=== PATIENT | female | born 1950 | race Caucasian/White ===

== ENCOUNTER 2016-09-04 20:26 | Inpatient (IN) | payer OTHER, MEDICARE ==
--- NOTE | ~2016-09-04 | HP ---
History And Physical [place] [id number] [place]. [address] NAME: TOPHER WASHINGTON : [birth year] STATUS : ADM IN [facility]#: [id number] AGE: 66 ADM/REG DATE : 09/04/16 MR#: [id number] REPORT SERV DATE: 09/05/16 DICTATED BY: NALINI SAINI DATE: 09/04/16 REPORT STATUS : Draft TRANSCRIBED BY: MODL DATE: 09/04/16 DATE OF ADMISSION: 09/04/2016 REASON FOR ADMISSION: Melena. Primary care doctor unclear. Sees Dr. Coyle needs and apparently Dr. Ernesto García for PCP. HISTORY OF PRESENT ILLNESS: This is a 66-year-old unfortunate female. 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 Noted colectomy due to history of colon cancer. The patient was recently discharged on 07/25/2016. At that time, the patient came in to the ICU for hypotension, epistaxis. Was given 2 PRBCs at that time. Noted to have recent discharge from [place] prior to that admission for GI bleed due to AVMs with small bowel obstruction. The patient was discharged. Did fairly well. Did have a routine paracenteses, 1.75 L were taken out. Seen Dr. Coyle, who last did another endoscopy on 08/18/2016. At that time, had found erythematous mucosa in the cardia of the stomach, multiple nonbleeding angiodysplastic lesions in the stomach. This was treated with thermal therapy, hiatal hernia and erythematous duodenopathy. Unfortunately, the patient has been getting almost every four toe eight weeks blood transfusion, last time got a couple of units of blood less than six weeks ago and as a matter of fact, her hemoglobin was 9 at that time. Now, she comes in here. Anemia 6.2 from 9 baseline about three weeks ago. States she has significant melanotic diarrhea. However, she should be taking her lactulose. Has denied taking any NSAIDs. The patient is hoping to get on to a plane on Thursday to fly to [facility] to get on the liver transplant list. Previously, she was denied at [place]. Apparently, Dr. Coyle instructed her today to come in and get 3 units of blood, get tuned up for hopeful ability to get on, make her flight down to [facility] presumably in [place]. Positive chills. No fevers. Positive nausea. No vomiting. Positive diarrhea as described. No chest pain, no chest pressure. Mild shortness of breath. REVIEW OF SYSTEMS: Done, see HPI, otherwise, negative. PAST MEDICAL HISTORY: See above. PAST SURGICAL HISTORY: See above. ALLERGIES: APPARENTLY DILAUDID, ADHESIVE TAPE, AND SULFA. FAMILY HISTORY: Hypertension in at least one parent. History And Physical [address] [address] NAME: TOPHER WASHINGTON : [birth year] STATUS : ADM IN [facility]#: [id number] AGE: 66 ADM/REG DATE : 09/04/16 MR#: [id number] REPORT SERV DATE: 09/05/16 DICTATED BY: NALINI SAINI DATE: 09/04/16 REPORT STATUS : Draft TRANSCRIBED BY: LILY DATE: 09/04/16 SOCIAL HISTORY: Lives independently with . Very supportive family. Denies alcohol, tobacco, or drug use. HOME MEDICATIONS: See MAR. Continue what is relevant. OBJECTIVE: VITAL SIGNS: Currently, 104/58; 97 temperature; 24 pulse, this is not true, this pulse is actually per EKG 91; 100% on 2 L. GENERAL: No acute distress. HEENT: PERRLA. CARDIOVASCULAR: Regular rate and rhythm. No murmur. RESPIRATORY: Decreased breath sounds bibasilarly. ABDOMEN: She is less distended apparently than prior. Some mild tenderness to palpation more in the right upper quadrant. No peritoneal signs or rebound tenderness. EXTREMITIES: No edema. No ecchymosis. NEURO: A and O x4. GCS of 15. No asterixis. PSYCH: Mildly anxious. LABORATORY DATA: White count 7.8; hemoglobin 6.2, apparently was 9 three weeks ago; [id number] platelets, 1.4 INR, 4.1 potassium, 130 sodium, 24 bicarb, 2.02 creatinine, baseline is about 1.8, 55 BUN, 219 sugar, T bilirubin 2.1, ALP 238. EKG, she has a normal sinus rhythm, no ischemic ST-T changes. I will get a chest x-ray given her subjective shortness of breath. It is more likely symptomatic anemia. ASSESSMENT AND PLAN: 1. Symptomatic anemia, significant fatigue, and shortness of breath. 2. Melena. 3. Nonalcoholic steatohepatitis cirrhosis. Follow up INR to calculate MELD. 4. Chronic kidney disease. Seems to be at baseline. PLAN: We will go ahead and admit this patient. We will ask Dr. Coyle to come by. I did not see any esophageal varices in the last endoscopy. As a result, I will not give any octreotide, rather we will just do PPI and IV b.i.d. Given her angioectasias, may be difficult to treat. She may have them throughout her GI tract. Given her history of cirrhosis, we will put on empiric IV Rocephin. Give iron dextran after PRBC 3 unit infusion as requested apparently from the patient per Dr. Coyle. The patient also with CT abdomen and pelvis regarding this melena. See rest of my orders. All questions were answered. Took well over 60 minutes to do. Reference [employer] and [employer]. WST/MODL Nalini Saini DO History And Physical [address] [address] NAME: TOPHER WASHINGTON : [birth year] STATUS : ADM IN PAT#: [id number] AGE: 66 ADM/REG DATE : 09/04/16 MR#: [id number] REPORT SERV DATE: 09/05/16 DICTATED BY: NALINI SAINI DATE: 09/04/16 REPORT STATUS : Draft TRANSCRIBED BY: MODL DATE: 09/04/16 / [id number] CC: Betsy Chambers M.D.
--- NOTE | ~2016-09-04 | DS ---
Discharge Summary [facility] [address] [place]. [address] NAME: TOPHER WASHINGTON : [birth year] STATUS : ADM IN [facility]#: [id number] AGE: 66 ADM/REG DATE : 09/04/16 MR#: [id number] REPORT SERV DATE: 09/05/16 DICTATED BY: APARNA EAST DATE: 09/05/16 REPORT STATUS : Draft TRANSCRIBED BY: MODL DATE: 09/05/16 ADMISSION DATE: 09/04/2016 DISCHARGE DATE: 09/05/2016 FINAL HOSPITAL DIAGNOSES: 1. Nonalcoholic steatohepatitis. 2. Arteriovenous malformations. 3. Chronic kidney disease. CONSULTATION: GI. PROCEDURES: Upper endoscopy done on the showing gastric antral vascular ectasia without bleeding, treated by fulguration. CT scan of the abdomen and pelvis done on the showing a fluid collection in the left abdomen, may represent loculated ascites. Abscess is not excluded. Small bowel loops around the collection appeared hazed and some of the florian have thickened. No oral contrast was given. Ileus gas pattern with air-fluid levels and multiple loops of nondilated small bowel and colon. Persistent right pleural effusion, right basilar consolidation, third spacing of fluid. Current physical findings and HPI, please see initial dictated H and P by Dr. Wagner. In brief, the patient is a 66-year-old female with above medical history, has an appointment Thursday with [facility] for consideration of transplantation with end-stage liver disease, presented for evaluation and treatment of upper GI bleeding and preparation for her assessments at [facility]. HOSPITAL COURSE: Initial vital signs, presenting BP was 85/47, average blood pressures have been 90-100 systolic. She has had no fever during her hospital stay. Lab work showed initially a sodium of 130, which corrected to 133. BUN and creatinine were 62 and 1.89 on date of discharge, which is approximately her baseline. Procalcitonin was 0.37, total bilirubin was 2.1, BNP was 1246, A1c was 4.5, ammonia was 72. The patient had a white count of 7.7 on admission and 9.2 on the date of discharge. Initial hemoglobin was 6.2, 7.2 on date of discharge, platelet count 147. INR 1.4. The patient was admitted. She was started on electrolyte protocol. Her home medications were reviewed and reordered as appropriate. GI was consulted for recurrent upper endoscopy. Above lab work was ordered. Serial hemoglobins were ordered. The patient was typed and crossed for blood transfusion. She was started on Rocephin and Protonix. She was consented for an EGD, which she underwent with the above findings. Postprocedure, she was felt stable for discharge. She did receive in total 2 units of packed cells. I did review the CT findings with the patient, her , and Dr. Sam. On review of her previous CTs, it appears this area of fluid collection was present before in light of her lack of white count, fever, or procalcitonin. This does appear clinically to be more likely ascitic fluid than representing an abscess. The patient understand the risks and benefits of this diagnosis, including significant infection; however, she felt it was imperative to get to Discharge Summary [address] [address] NAME: TOPHER WASHINGTON : [birth year] STATUS : ADM IN [facility]#: [id number] AGE: 66 ADM/REG DATE : 09/04/16 MR#: [id number] REPORT SERV DATE: 09/05/16 DICTATED BY: APARNA EAST DATE: 09/05/16 REPORT STATUS : Draft TRANSCRIBED BY: MODShoshana DATE: 09/05/16 [facility] for her transplant evaluation. Her was in agreement and the patient was discharged in stable condition. DISPOSITION: Discharged on Cipro 250 q.3 days, coenzyme Q10 75 one per day, lactulose 15-30 b.i.d., Prilosec 40 b.i.d., Xifaxan 550 b.i.d., Aldactone 50 one per day, ProAmatine 5 t.i.d., Lasix 60 daily, Levsin 0.125 three times a day, Ultram 50, Culturelle, magnesium oxide 400, Zofran 4. The patient and her were given signs and symptoms of infection including fever, encephalopathy, hypotension to seek medical care immediately. The patient will return after evaluation in [facility]. BRANDIN/LILY Aparna East M.D. / [id number] CC: Betsy Chambers M.D.
--- NOTE | ~2016-09-04 | EGD ---
EGD REPORT [facility] [address] [address] NAME: TOPHER WASHINGTON : [birth year] STATUS : ADM IN PAT#: [id number] AGE: 66 ADM/REG DATE : 09/04/16 MR#: [id number] REPORT SERV DATE: 09/05/16 DICTATED BY: JOVON ESPAÑA DATE: 09/05/16 REPORT STATUS : Draft TRANSCRIBED BY: [facility] DATE: 09/05/16 Endoscopy Center Patient Name: Topher Washington Date of : 1950 Attending MD: JOVON ESPAÑA MD Procedure Date No Time: 09/05/2016 Procedure: Upper GI endoscopy Indications: Iron deficiency anemia secondary to chronic blood loss Medicines: Monitored Anesthesia Care Complications: No immediate complications. Estimated blood loss: Minimal. Procedure: Pre-Anesthesia Assessment: - ASA Grade Assessment: IV - A patient with severe systemic disease that is a constant threat to life. After obtaining informed consent, the endoscope was passed under direct vision. Throughout the procedure, the patient's blood pressure, pulse, and oxygen saturations were monitored continuously. The GIF [id number] was introduced through the mouth, and advanced to the second part of duodenum. The upper GI endoscopy was accomplished without difficulty. The patient tolerated the procedure well. Findings: No gross lesions were noted in the entire esophagus. Moderate, diffuse gastric antral vascular ectasia without bleeding was present in the gastric antrum. Fulguration to ablate the lesion to prevent bleeding by argon plasma at 1 liter/minute and 30 castrejon was successful. Estimated blood loss was minimal. The examined duodenum was normal. Impression: - Gastric antral vascular ectasia without bleeding. Treated by fulguration. - Otherwise unremarkable examination Recommendation: - Return patient to hospital [facility] for possible discharge same day. - Protonix 40 mg PO BID for 6 weeks - Advance diet slowly - OK to D/C for trip to [facility] from GI standpoint Procedure Code(s): --- Professional --- 14460, Esophagogastroduodenoscopy, flexible, transoral; with control of bleeding, any method EGD REPORT [facility] [address] [place], [place] [address]. [address] NAME: TOPHER WASHINGTON : [birth year] STATUS : ADM IN [facility]#: [id number] AGE: 66 ADM/REG DATE : 09/04/16 MR#: [id number] REPORT SERV DATE: 09/05/16 DICTATED BY: JOVON ESPAÑA DATE: 09/05/16 REPORT STATUS : Draft TRANSCRIBED BY: [employer] DATE: 09/05/16 Diagnosis Code(s): --- Professional --- K31.819, Angiodysplasia of stomach and duodenum without bleeding D50.0, Iron deficiency anemia secondary to blood loss (chronic) CPT copyright 2013 [employer]. All rights reserved. The codes documented in this report are preliminary and upon research administrator review may be revised to meet current compliance requirements. Jovon España MD JOVON ESPAÑA MD 09/05/2016 6:56 PM This report has been signed electronically. Number of Addenda: 0 Note Initiated On: 09/05/2016 6:29 PM Scope Withdrawal Time 0 hours 0 minutes 0 seconds [address] [facility] [place] [address]
--- NOTE | ~2016-09-04 | CN ---
Consultation Report [facility] [address] [place]. [address] NAME: TOPHER PEARSON : [birth year] STATUS : ADM IN PAT#: [id number] AGE: 66 ADM/REG DATE : 09/04/16 MR#: [id number] REPORT SERV DATE: 09/05/16 DICTATED BY: ESTEFANIA OROZCO DATE: 09/05/16 REPORT STATUS : Draft TRANSCRIBED BY: LILY DATE: 09/05/16 GI CONSULTATION. DATE OF CONSULTATION: 09/05/2016 REASON FOR CONSULTATION: Evaluation and management of acute blood loss anemia with a history of chronic anemia, melena, history of AVMs, as well as decompensated liver disease. HISTORY OF PRESENT ILLNESS: Ms. Pearson is a pleasant 66-year-old female patient who is known to Dr. Coyle in the outpatient setting, who presented to [facility] with a chief complaint of symptomatic anemia. Hemoglobin was 6.2 on admission. She complains of continuous dark stools. She has a pertinent past medical history of MELARA cirrhosis. She has been evaluated at [facility] for liver transplantation and was declined. She has also been seen at [facility] and is presently traveling to the [facility] in [place] for evaluation for liver transplantation. She has had recent endoscopy with Dr. Coyle on 08/18/2016, this was done secondary to persistent anemia as well as known AVMs. That exam showed normal esophagus, some erythema in the cardia. She had multiple nonbleeding angiodysplastic lesions in the stomach that were treated with thermal therapy. She had duodenitis and a hiatal hernia. She states that she received blood roughly a week ago, however, she complained of weakness. Labs with Dr. Coyle in the outpatient setting revealed a hemoglobin of 6.5, and as she was making plans to travel tomorrow to [place], he instructed her to come to the hospital for further evaluation secondary to above symptoms. At present, she has received one unit of packed red blood cells. She is slated to receive three. She denies any abdominal pain. She states that she is thirsty and would like a popsicle. I have discussed with her that we will place her on clear liquid diet today, perform an EGD in the morning, and potentially discharge her later that day or Thursday when she can travel to [place] for her appointment on Thursday. She denies any bright red blood per rectum. She denies any vomiting. She has some mild nausea. She has some mild exertional shortness of breath. She does have multiple black tarry stools a day. She is on lactulose secondary to her liver disease. She has had no documented fevers. No cough. No rhinorrhea. PAST MEDICAL HISTORY: Positive for end-stage liver disease secondary to MELARA versus GERD with hiatal hernia, gastric antral vascular ectasias having to undergo treatment every several weeks with cautery by Dr. Coyle, breast cancer, colon cancer, neuropathy, MRSA infection, chronic kidney disease, urinary tract infections, ascites, small-bowel obstructions. PAST SURGICAL HISTORY: Cholecystectomy, hysterectomy, partial colectomy secondary to colon cancer. FAMILY HISTORY: Noncontributory from a GI standpoint. SOCIAL HISTORY: She lives independently with her . Very supportive family at the Consultation Report [address] [address] NAME: TOPHER PEARSON : [birth year] STATUS : ADM IN [facility]#: [id number] AGE: 66 ADM/REG DATE : 09/04/16 MR#: [id number] REPORT SERV DATE: 09/05/16 DICTATED BY: ESTEFANIA OROZCO DATE: 09/05/16 REPORT STATUS : Draft TRANSCRIBED BY: LILY DATE: 09/05/16 bedside. Denies alcohol, tobacco, or illicits. ALLERGIES: DILAUDID AND SULFA, AND ADHESIVE TAPE. HOME MEDICATIONS: Cipro, CoQ10, Lasix, Levsin, Enulose, magnesium oxide, ProAmatine, Prilosec, Zofran, Xifaxan, Aldactone, Ultram, Culturelle capsule. REVIEW OF SYSTEMS: A 10-point review of systems obtained, pertinent positives addressed in the history of present illness. PHYSICAL EXAMINATION: VITAL SIGNS: Temperature 97.9, pulse 88, respirations 20, blood pressure 85/46. NEURO: Reveals an alert, chronically ill-appearing female, resting in bed. GENERAL: She is cooperative. She is in no obvious distress. She is awake. She is alert. She is oriented x3. She has no asterixis noted. Positive for neck and chest telangiectasias. HEAD, EARS, EYES, NOSE, AND THROAT: Anicteric. Pupils equal, round, reactive to light and accommodation. Normocephalic and atraumatic. NECK: No JVD. No palpable nodes. LUNGS: Diminished throughout. Normal respiratory effort exhibited. CARDIOVASCULAR SYSTEM: Regular rate and rhythm. ABDOMEN: Soft, nontender. Very mild distention. No appreciable ascites. She has active bowel sounds in all four quadrants. No organomegaly appreciated. EXTREMITIES: No edema. Normal distal pulses. SKIN: Warm, dry, and intact. PERTINENT LABORATORY DATA: Sodium 130, potassium 4.1, BUN is 55, creatinine 2.02. White count 7.7, hemoglobin 6.2, hematocrit 18.6, platelet count 188. INR of 1.4. BNP is 1246. TSH is 1.850. ASSESSMENT: 1. Acute blood loss anemia with a history of chronic ongoing anemia. 2. Melena with history of AVMs and recent intervention with Dr. Coyle on 18/08. 3. End-stage liver disease secondary to nonalcoholic steatohepatitis. 4. History of recurrent small-bowel obstructions, asymptomatic at this time. 5. Chronic kidney disease. PLAN: 1. Clear liquid diet. N.p.o. after midnight. 2. Transfuse by parameters given by hospitalist. 3. EGD with treatment of AVMs in the morning with Dr. De Leon. 4. Follow hemoglobin and hematocrit and transfuse if needed. We will follow. Consultation Report [address] [place]. [address] NAME: TOPHER PEARSON : [birth year] STATUS : ADM IN [facility]#: [id number] AGE: 66 ADM/REG DATE : 09/04/16 MR#: [id number] REPORT SERV DATE: 09/05/16 DICTATED BY: ESTEFANIA OROZCO DATE: 09/05/16 REPORT STATUS : Draft TRANSCRIBED BY: MODShoshana DATE: 09/05/16 CECILY/LILY SEAN Larkin / [id number] CC: Betsy Chambers M.D.
[2016-09-04 19:16] LABS: BASOPHILS 0.1 %; BASOPHILS ABSOLUTE 0.01 10/3/uL (0.0-0.16); EOSINOPHILS 0 %; IMMATURE GRANULOCYTES 1.6 %; IMMATURE GRANULOCYTES ABSOLUTE 0.12 10/3/uL (0.0-0.11); LYMPHOCYTES 5.8 %; LYMPHOCYTES ABSOLUTE 0.44 10/3/uL (0.67-4.30); MEAN CORPUS HGB CONC 33.3 g/dL (32.0-36.0); MEAN CORPUSCULAR HEMOGLOB 32.3 pg (26.0-34.0); MEAN PLATELET VOLUME 9.4 fL (9.2-13.0); MONOCYTES 1.7 %; MONOCYTES ABSOLUTE 0.13 10/3/uL (0.21-1.20); NEUTROPHILS 90.8 %; NEUTROPHILS ABSOLUTE 6.95 10/3/uL (2.02-8.40); RED CELL COUNT 1.92 10/6/uL (4.0-5.6); WHITE BLOOD CELLS 7.7 10/3/uL (4.5-10.5)
[2016-09-04 19:21] LABS: HEMATOCRIT 18.6 % (36.0-48.0); HEMOGLOBIN 6.2 g/dL (12.0-16.0); MEAN CORPUSCULAR VOLUME 96.9 fL (80-100); PLATELET COUNT 188 10/3/uL (150-400); RBC DISTRIBUTION WIDTH 22.1 % (12.0-16.0)
[2016-09-04 19:22] LABS: MANUAL DIFF NO %
[2016-09-04 19:31] LABS: A/G RATIO 0.4 (0.7-1.9); ALKALINE PHOSPHATASE 238 U/L (45-117); BUN (BLOOD UREA NITROGEN) 55 MG/DL (6-23); CALCIUM, SERUM 8.2 MG/DL (8.5-10.4); CHLORIDE, SERUM 92 MMOL/L (96-112); CO2 (CARBON DIOXIDE) 24 MMOL/L (24-34); CREATININE 2.02 MG/DL (0.55-1.02); GFR AFRICAN AMERICAN 29 ML/MIN (>=60); GFR NON AFRICAN AMERICAN 25 ML/MIN (>=60); GLOBULIN 4.9 G/DL (2.5-4.1); GLUCOSE, SERUM 219 MG/DL (60-99); POTASSIUM, SERUM 4.1 MMOL/L (3.5-5.3); SODIUM, SERUM 130 MMOL/L (135-148); TOTAL BILIRUBIN 2.1 MG/DL (0-1.2); TOTAL PROTEIN 6.9 G/DL (6.0-8.5)
[2016-09-04 19:32] LABS: INTERNATIONAL NORMAL RATI 1.4 UNITS (-); PARTIAL THROMBO TIME 34.8 SEC (22.5-37.2); PROTIME (NOT ORD) 16.9 SEC (12.0-14.5); SGOT(AST) 33 U/L (5-40); SGPT(ALT) 25 U/L (5-65)
[2016-09-04 19:43] LABS: ANISOCYTOSIS 1+ (5-10/OIF) (0-5/OIF); PLATELET ESTIMATE ADQ (ADEQUATE)
[~2016-09-04 20:26] MED LIST: ACET500CAP PO; ACTONEL150 MG PO; AMOXIL875 MG PO; ATV.5 PO; BEN25 PO; BENTYL10 PO; BISR PR; CO Q-10100 MG PO; CO Q-10200 MG PO; CO Q-1075 MG PO; CONSTULOSE PO; COREG3 PO; COZ50 PO; CULTURELLE OTC PO; CULTURELLE PO; CULTURELLE PROBIOTIC PO; DEMA20 PO; DSS PO; ENDOCET1 TA3 PO; ENULOSE PO; FERROUS SULF325 M1 PO; FESO4 PO; FLORASTOR250 MG PO; FOLIC PO; FORTEO SC; GGDM5ML PO; I10 PO; KAOPECTATE262 MG/15 PO; KLOR-CON M2020 MEQ PO; KRISTALOSE10 GM PO; L20 PO; L40 PO; LACT30UDL PO; LASIX PO; LEVAQUIN750 MG PO; LEVSINTAB PO; LEVSINTAB PO/SL; LEVSINTAB SL; MAALOX PO; MAGIC MOUTHWASH PO; MAGOX4 PO; MOMUD PO; MVI PO; NYSTOP100000 MG TOP; OCEAN NAS; OXYCOD PO; OXYIR5 MG PO; PCET PO; PR25R PR; PREV15 PO; PRILO PO; PRILOSEC40 MG PO; PROAIR HFA INH; PROTONIX PO; QVAR80 MCG INH; RANITIDINE300 MG PO; RECLAST IV; SOAP SUDS ENEMA PR; SODBICAR10 PO; SPIRO25 PO; SPIRO50 PO; T PO; TAMOXIFEN IV; TAMOXIFEN PO; TYLOX1 CAP PO; ULTRAM50 PO; VENELEX OINTMENT TOP; VICODINTAB PO; VITAMIN B; VITAMIN B PO; XIFAXAN550 MG PO; ZOFRAN ODT4 MG SL; ZOFRAN4 PO; [UNRECOGNIZED DRUG - OTHER] IM; [UNRECOGNIZED DRUG - OTHER] PO
[2016-09-04] MEDS ORDERED: L20 PO (20:32)
[2016-09-04] MEDS ORDERED: CO Q-1075 MG PO (20:32)
[2016-09-04] MEDS ORDERED: XIFAXAN550 MG PO (20:34)
[2016-09-04] MEDS ORDERED: LEVSINTAB SL (20:34)
[2016-09-04] MEDS ORDERED: ULTRAM50 PO (20:34)
[2016-09-04] MEDS ORDERED: PRILOSEC40 MG PO (20:34)
[2016-09-04] MEDS ORDERED: ENULOSE PO (20:35)
[2016-09-04] MEDS ORDERED: CULTURELLE CAPSULE PO (20:35)
[2016-09-04] MEDS ORDERED: MAGOX4 PO (20:35)
[2016-09-04] MEDS ORDERED: SPIRO50 PO (20:36)
[2016-09-04] MEDS ORDERED: PROAMAT5 PO (20:36)
[2016-09-04] MEDS ORDERED: CIP2 PO (20:36)
[2016-09-04] MEDS ORDERED: ZOFRAN4 PO (20:36)
[2016-09-05 01:04] LABS: PROCALCITONIN 0.37 ng/mL (<0.5)
[2016-09-05 01:24] LABS: PHOSPHORUS, SERUM 3.2 MG/DL (2.5-4.5)
[2016-09-05 08:14] LABS: GLYCOHEMOGLOBIN (HbA1c) 4.5 % (4.7-6.1)
[2016-09-05 09:48] LABS: HEMOGLOBIN 7.2 g/dL (12.0-16.0); MEAN CORPUS HGB CONC 32.6 g/dL (32.0-36.0); MEAN CORPUSCULAR VOLUME 98.2 fL (80-100); MEAN PLATELET VOLUME 9.7 fL (9.2-13.0); PLATELET COUNT 147 10/3/uL (150-400); RBC DISTRIBUTION WIDTH 20.3 % (12.0-16.0); RED CELL COUNT 2.25 10/6/uL (4.0-5.6); WHITE BLOOD CELLS 9.2 10/3/uL (4.5-10.5)
[2016-09-05 09:59] LABS: HEMATOCRIT 22.1 % (36.0-48.0); MANUAL DIFF YES %
[2016-09-05 10:01] LABS: CALCIUM, SERUM 8.2 MG/DL (8.5-10.4); CHLORIDE, SERUM 98 MMOL/L (96-112); CO2 (CARBON DIOXIDE) 25 MMOL/L (24-34); CREATININE 1.89 MG/DL (0.55-1.02); GFR AFRICAN AMERICAN 31 ML/MIN (>=60); GFR NON AFRICAN AMERICAN 27 ML/MIN (>=60); PHOSPHORUS, SERUM 3.1 MG/DL (2.5-4.5); POTASSIUM, SERUM 4.8 MMOL/L (3.5-5.3); SODIUM, SERUM 133 MMOL/L (135-148)
[2016-09-05 10:02] LABS: BUN (BLOOD UREA NITROGEN) 62 MG/DL (6-23); GLUCOSE, SERUM 135 MG/DL (60-99)
[2016-09-05 10:26] LABS: BAND NEUTROPHILS 5 %; LYMPHOCYTES 10 %; LYMPHOCYTES ABSOLUTE (CALC) 0.92 10/3/uL (0.67-4.30); MONOCYTES 3 %; MONOCYTES ABSOLUTE (CALC) 0.28 10/3/uL (0.21-1.20); SEGMENTED NEUTROPHIL (0) 82 %; TOTAL NUCLEATED CELLS 100
[2016-09-05 10:27] LABS: ANISOCYTOSIS 1+ (5-10/OIF) (0-5/OIF); PLATELET ESTIMATE SLT DEC (ADEQUATE); POLYCHROMASIA 1+ (2-5/OIF) (0-1/OIF)
== END 2016-09-05 22:12 | disposition home or self-care (01) | DRG 392 ==
LOC: ER 20:26 → 4SO 21:01
PROVIDERS: Emergency Medicine; Internal Medicine; Internal Medicine Gastroenterology
PROC: 30233N1 Transfusion of Nonautologous Red Blood Cells into Peripheral Vein, Percutaneous Approach (ICD-10-PCS; 2016-09-05)
PROC: 0D568ZZ Destruction of Stomach, Via Natural or Artificial Opening Endoscopic (ICD-10-PCS; principal; 2016-09-05 18:30)
DX: K31.819 Angiodysplasia of stomach and duodenum without bleeding (principal); R18.8 Other ascites; K74.69 Other cirrhosis of liver; D62 Acute posthemorrhagic anemia; N18.3 Chronic kidney disease, stage 3 (moderate); D50.0 Iron deficiency anemia secondary to blood loss (chronic); K75.81 Nonalcoholic steatohepatitis (NASH); G62.9 Polyneuropathy, unspecified; K21.9 Gastro-esophageal reflux disease without esophagitis; Z88.8 Allergy status to other drugs, medicaments and biological substances; Z88.2 Allergy status to sulfonamides; Z91.048 Other nonmedicinal substance allergy status; Z85.038 Personal history of other malignant neoplasm of large intestine; Z90.49 Acquired absence of other specified parts of digestive tract
CPT/HCPCS: 36415; 71010; 74176; 80048; 80053; 82140; 82962; 83036; 83735; 83880; 84100; 84145; 84443; 85025; 85610; 85730; 86850; 86870; 86900; 86901; 86920; 86922; 93005; 99291; A9270-GY; C9113; J1750; P9016; P9054

== ENCOUNTER 2016-10-03 22:47 | Inpatient (IN) | payer MEDICARE ==
--- NOTE | ~2016-10-03 | HP ---
History And Physical [facility] [address] [facility] [place]. [address] NAME: TOPHER PEARSON : 46 STATUS : ADM Lissette PAT#: [id number] AGE: 66 ADM/REG DATE : 10/03/16 MR#: [id number] REPORT SERV DATE: 10/04/16 DICTATED BY: ERIC CARPENTER DATE: 10/04/16 REPORT STATUS : Draft TRANSCRIBED BY: MODL DATE: 10/04/16 DATE OF ADMISSION: 10/03/2016 CHIEF COMPLAINT: Altered mental status and confusion. HISTORY OF PRESENT ILLNESS: This is a 66-year-old female, who I had seen in the past about a year or so ago with a history of nonalcoholic steatohepatitis with cirrhosis of the liver, chronic kidney disease, chronic anemia, who presents to the emergency room at [facility] with the above-mentioned complaint. History is obtained from the family who is at bedside, and reviewing data available on the [employer] system. According to available data, Mrs. Pearson had just returned from [facility] in [place] after she was evaluated for liver transplantation. Unfortunately, she had cardiac complications and would not be able to tolerate surgery so she was denied her liver transplantation. The patient's family, along with her returned home to [place] today with the expectation of her being placed under hospice care. They met with hospice care upon return today and as part of the discussions, blood transfusions had come up and hospice care said that they would not do blood transfusions if the patient chose hospice care. The family did not want that and wanted blood transfusions in case her anemia got worse. During all this, the patient started getting more lethargic and staring ahead. The patient's family were concerned. They removed her Duragesic patch that she was on, which was placed by [facility] in [place]. Soon thereafter, the patient became belligerent, she started screaming, had shaking tremors, and the patient's family decided to bring her to the emergency room to be evaluated. In the emergency room, indeed she had hepatic encephalopathy and confusion, and she was given Ativan in the emergency room to calm her down. Hospitalist Service is asked to admit her for further evaluation and treatment. At the time of my evaluation, the patient was quite sedated, sleeping peacefully. She was barely arousable but most of the review of systems and other information was obtained from the patient's family. She had not complained of any chest pain or palpitations recently. She has not had any cough, hemoptysis, night sweats, or weight loss. She has not had any fevers, chills, nausea, vomiting, diarrhea. She has not had any bleeding from anywhere recently. PAST MEDICAL HISTORY: Significant for end-stage renal disease secondary to nonalcoholic steatohepatitis. She has hypertension, chronic kidney disease, gastroesophageal reflux disease, osteoarthritis, and anemia. SOCIAL HISTORY: She does not smoke, drink, or use recreational drugs. FAMILY HISTORY: Noncontributory. MEDICATIONS: At home were reviewed by me in the chart today and reordered by me. History And Physical [address] [address] NAME: TOPHER PEARSON : 46 STATUS : ADM Lissette PAT#: [id number] AGE: 66 ADM/REG DATE : 10/03/16 MR#: [id number] REPORT SERV DATE: 10/04/16 DICTATED BY: ERIC CARPENTER DATE: 10/04/16 REPORT STATUS : Draft TRANSCRIBED BY: LILY DATE: 10/04/16 REVIEW OF SYSTEMS: As in history of present illness. All other systems were reviewed in detail and are quite unremarkable. PHYSICAL EXAMINATION: GENERAL: This is a 66-year old who is sedated and resting. She appears to be in no distress. HEENT: Her head appears to be atraumatic, normocephalic. Her pupils are equal, reacting to light and accommodating. Sclerae are icteric. Her whole body is jaundiced. NECK: Supple with no jugular venous distention, lymphadenopathy, or thyromegaly. LUNGS: Lung sounds were clear with no wheezes, rubs, or crackles. HEART: Heart sounds were regular with no murmurs, rubs, or gallops. ABDOMEN: Soft, nontender. Bowel sounds are present. EXTREMITIES: Showed bilateral pitting lower extremity edema. NEUROLOGIC: Grossly intact. She is under the influence of a sedative and sleeping. No neurological examination could be performed at this time. VITAL SIGNS: Her vital signs today showed a temperature of 98.0, pulse was 118, respirations were 38 a minute, and blood pressure upon arrival was 123/58. Oxygen saturations upon arrival were 99%. LABORATORY DATA: Reviewed on the [employer] system showed a sodium of 143, potassium 4.2, chloride 106, and CO2 of 19. BUN was 80 with a creatinine of 3.20 and blood glucose was 91. Her albumin was 2.5 today. Direct bilirubin was 1.3, indirect 1.8, and total bilirubin was 9.2, alkaline phosphatase was 138, ALT was 42, AST 62 today. Troponin was elevated at 0.08 today. Ammonia was 33 today, [place] [address], hemoglobin was 9, hematocrit 27, and platelet count was 217,000. Her prothrombin time was 26.3 today with an INR of 2.4. Urinalysis was not performed today. A chest x-ray was done in the emergency room, films of which I reviewed on the PACS, interpretation is mine. Per my interpretation, there are no acute lobar consolidations or effusions seen. IMPRESSION: 1. Altered mental status. 2. Hepatic encephalopathy, acute. 3. End-stage liver disease. 4. Hypertension. 5. Chronic kidney disease. 6. Gastroesophageal reflux disease. 7. Osteoarthritis. 8. Anemia, chronic. PLAN: We will admit Mrs. Pearson to the Hospitalist Service. The patient is DNR with comfort measures only. They wish to reconsider hospice care, and we will consult them or facilitate this to happen tomorrow. Meanwhile, we will start her on IV fluids, continue mild sedation as needed, and also pain control as needed. We will consult hospice as mentioned above in the morning. We will continue all other supportive care and place [place] History And Physical [address] [address] NAME: TOPHER PEARSON : 46 STATUS : ADM Lissette PAT#: [id number] AGE: 66 ADM/REG DATE : 10/03/16 MR#: [id number] REPORT SERV DATE: 10/04/16 DICTATED BY: ERIC CARPENTER DATE: 10/04/16 REPORT STATUS : Draft TRANSCRIBED BY: MODShoshana DATE: 10/04/16 catheter as well. She will be on unfractionated heparin for DVT prophylaxis while here. The above plans were discussed with the patient and the family. Questions were answered, and they are agreeable to the above recommendations. Hospitalist Service will be following her during her stay here. /LILY Eric Carpenter M.D. / [id number] CC: Shahid Lopez MD
--- NOTE | ~2016-10-03 | DS ---
Discharge Summary [facility] [address] [place]. [address] NAME: TOPHER WASHINGTON : 46 STATUS : DIS IN PAT#: [id number] AGE: 66 ADM/REG DATE : 10/05/16 MR#: [id number] REPORT SERV DATE: 10/07/16 DICTATED BY: YARELY LE II DATE: 10/06/16 REPORT STATUS : Draft TRANSCRIBED BY: MODL DATE: 10/06/16 ADMISSION DATE: 10/05/2016 DISCHARGE DATE: 10/06/2016 DATE OF : 10/06/2016. DIAGNOSES: At time of : 1. Urinary tract infection. 2. Septic shock. 3. Metabolic encephalopathy. 4. End-stage liver disease, secondary to nonalcoholic steatohepatitis .. 5. Acute kidney injury. 6. Anasarca. 7. History of hypertension. 8. Chronic kidney disease, stage 3. BRIEF HISTORY OF PRESENT ILLNESS: The patient is a 66-year-old female, with the above history, who presented to [facility], due to altered mental status and confusion. For detailed history and physical examination, please see Dr. Cunningham's note from 10/03/2016. HOSPITAL COURSE: After admission, the patient was subsequently found to have likely urinary tract infection with large leukocyte esterase, greater than 182 red cells, and greater than 182 white cells, with many bacteria, and many budding yeast. Her white count was 27 and she was started on cefepime. Due to the patient's lack of IV access, she ended up actually getting cefepime intramuscularly. The patient has history of poor vascular access and previously had a get IVs in her feet. PICC line was unable to be placed nor ultrasound- guided peripheral IV. She did have one peripheral and was able to get some IV albumin and fluids. The patient was becoming hypotensive with blood pressure in the 70s and Dr. Yanez with Critical Care was consulted for consideration of admitting the patient to ICU and placing a central line. After further discussion with family, it was decided that due to the patient's underlying irreversible condition and poor current prognosis, given multiorgan failure, with renal failure, liver failure, and septic shock, her chance of meaningful recovery was poor and that the patient was continued on antibiotics, but no further escalation of care. She was made comfortable and the patient subsequently succumbed to her illness and was pronounced on 10/06/2016. USMAN/LILY Yarely Le II, MD / [id number] CC: Discharge Summary [address] [address] NAME: TOPHER WASHINGTON : 46 STATUS : DIS IN PAT#: [id number] AGE: 66 ADM/REG DATE : 10/05/16 MR#: [id number] REPORT SERV DATE: 10/07/16 DICTATED BY: YARELY LE II DATE: 10/06/16 REPORT STATUS : Draft TRANSCRIBED BY: LILY DATE: 10/06/16 MD Ernesto Aguirre II, M.D.
[~2016-10-03 22:47] MED LIST changes: +CIP2 PO; +CULTURELLE CAPSULE PO; +PROAMAT5 PO
[2016-10-03 23:34] LABS: BASOPHILS 0.2 %; BASOPHILS ABSOLUTE 0.06 10/3/uL (0.0-0.16); EOSINOPHILS 0 %; IMMATURE GRANULOCYTES 2.5 %; IMMATURE GRANULOCYTES ABSOLUTE 0.68 10/3/uL (0.0-0.11); LYMPHOCYTES 4.2 %; LYMPHOCYTES ABSOLUTE 1.16 10/3/uL (0.67-4.30); MEAN CORPUS HGB CONC 33.3 g/dL (32.0-36.0); MEAN CORPUSCULAR HEMOGLOB 29.7 pg (26.0-34.0); MONOCYTES 9.2 %; MONOCYTES ABSOLUTE 2.55 10/3/uL (0.21-1.20); NEUTROPHILS 83.9 %; NEUTROPHILS ABSOLUTE 23.16 10/3/uL (2.02-8.40); NUCLEATED RED BLOOD CELLS 0.1 /100WBC (0-0)
[2016-10-03 23:36] LABS: ER CBC TAT 0 Hrs 13 Mins; INTERNATIONAL NORMAL RATI 2.4 UNITS (-); MEAN CORPUSCULAR VOLUME 89.1 fL (80-100); PARTIAL THROMBO TIME 51.8 SEC (22.5-37.2); PLATELET COUNT 217 10/3/uL (150-400); RBC DISTRIBUTION WIDTH 30.5 % (12.0-16.0); RED CELL COUNT 3.03 10/6/uL (4.0-5.6); WHITE BLOOD CELLS 27.6 10/3/uL (4.5-10.5)
[2016-10-03 23:39] LABS: MANUAL DIFF NO %
[2016-10-03 23:41] LABS: PROTIME (NOT ORD) 26.3 SEC (12.0-14.5)
[2016-10-03 23:45] LABS: A/G RATIO 0.7 (0.7-1.9); ALBUMIN 2.5 G/DL (3.5-5.0); ALKALINE PHOSPHATASE 138 U/L (45-117); BUN (BLOOD UREA NITROGEN) 80 MG/DL (6-23); CALCIUM, SERUM 9.6 MG/DL (8.5-10.4); CHLORIDE, SERUM 106 MMOL/L (96-112); CO2 (CARBON DIOXIDE) 19 MMOL/L (24-34); GFR AFRICAN AMERICAN 16 ML/MIN (>=60); GFR NON AFRICAN AMERICAN 14 ML/MIN (>=60); GLOBULIN 3.5 G/DL (2.5-4.1); GLUCOSE, SERUM 91 MG/DL (60-99); POTASSIUM, SERUM 4.2 MMOL/L (3.5-5.3); SGPT(ALT) 42 U/L (5-65); SODIUM, SERUM 143 MMOL/L (135-148); TOTAL BILIRUBIN 9.2 MG/DL (0-1.2)
[2016-10-03 23:46] LABS: SGOT(AST) 62 U/L (5-40); TROPONIN I 0.08 NG/ML (<0.05)
[2016-10-04 00:16] LABS: ANISOCYTOSIS 4+ (>50/OIF) (0-5/OIF); ATYPICAL LYMPH FEW (3-5%) (0-5%); ER DIFF TAT 0 Hrs 53 Mins; IMMATURE GRANS ABSOLUTE (CALC) 0.83 10/3/uL (0.0-0.11); LYMPHOCYTES 3 %; LYMPHOCYTES ABSOLUTE (CALC) 0.83 10/3/uL (0.67-4.30); MONOCYTES 7 %; MONOCYTES ABSOLUTE (CALC) 1.93 10/3/uL (0.21-1.20); MYELOCYTES 3 %; NEUTROPHILS ABSOLUTE (CALC) 24.01 10/3/uL (2.02-8.40); PLATELET ESTIMATE ADQ (ADEQUATE); RBC MORPHOLOGY ABN (NORMAL); SEGMENTED NEUTROPHIL (0) 87 %; TOTAL NUCLEATED CELLS 100
[2016-10-04] MEDS ORDERED: CIP2 PO (01:04)
[2016-10-04] MEDS ORDERED: BICITRA PO (01:04)
[2016-10-04] MEDS ORDERED: PRILO PO (01:05)
[2016-10-04] MEDS ORDERED: KRISTALOSE20 GM PO (01:05)
[2016-10-04] MEDS ORDERED: CULTURELLE PROBIOTIC PO (01:05)
[2016-10-04] MEDS ORDERED: PROAMAT5 PO (01:05)
[2016-10-04] MEDS ORDERED: CO Q-1075 MG PO (01:06)
[2016-10-04] MEDS ORDERED: ZOFRAN4 PO (01:06)
[2016-10-04] MEDS ORDERED: ULTRAM50 PO (01:06)
[2016-10-04] MEDS ORDERED: XIFAXAN550 MG PO (01:06)
[2016-10-04] MEDS ORDERED: ZINC220C PO (01:07)
[2016-10-04] MEDS ORDERED: P10 PO (01:07)
[2016-10-04 16:26] LABS: ASCORBIC ACID (UR NOT ORDER) NEG (NEG); BILIRUBIN, URINE NEGATIVE (NEG); KETONE, URINE NEGATIVE (NEG); LEUKOCYTE ESTERASE(NOT OR LARGE (NEG)
[2016-10-04 16:28] LABS: WBC (NOT ORDERED) (RFLEX) > 182 (0-5)
[2016-10-05 07:39] LABS: A/G RATIO 0.7 (0.7-1.9); ALBUMIN 2.3 G/DL (3.5-5.0); ALKALINE PHOSPHATASE 142 U/L (45-117); CALCIUM, SERUM 10.5 MG/DL (8.5-10.4); CHLORIDE, SERUM 107 MMOL/L (96-112); CO2 (CARBON DIOXIDE) 18 MMOL/L (24-34); GFR AFRICAN AMERICAN 15 ML/MIN (>=60); GFR NON AFRICAN AMERICAN 13 ML/MIN (>=60); GLOBULIN 3.3 G/DL (2.5-4.1); SGPT(ALT) 47 U/L (5-65); SODIUM, SERUM 146 MMOL/L (135-148); TOTAL PROTEIN 5.6 G/DL (6.0-8.5)
[2016-10-05 07:44] LABS: BASOPHILS 0.2 %; BASOPHILS ABSOLUTE 0.04 10/3/uL (0.0-0.16); BUN (BLOOD UREA NITROGEN) 94 MG/DL (6-23); EOSINOPHILS 0 %; GLUCOSE, SERUM 57 MG/DL (60-99); HEMATOCRIT 25.8 % (36.0-48.0); HEMOGLOBIN 8.9 g/dL (12.0-16.0); IMMATURE GRANULOCYTES 1.3 %; IMMATURE GRANULOCYTES ABSOLUTE 0.26 10/3/uL (0.0-0.11); LYMPHOCYTES 4.5 %; LYMPHOCYTES ABSOLUTE 0.89 10/3/uL (0.67-4.30); MEAN CORPUS HGB CONC 34.5 g/dL (32.0-36.0); MEAN CORPUSCULAR HEMOGLOB 30.6 pg (26.0-34.0); MEAN CORPUSCULAR VOLUME 88.7 fL (80-100); MEAN PLATELET VOLUME 10.2 fL (9.2-13.0); MONOCYTES 4.5 %; MONOCYTES ABSOLUTE 0.88 10/3/uL (0.21-1.20); NEUTROPHILS 89.5 %; NEUTROPHILS ABSOLUTE 17.65 10/3/uL (2.02-8.40); PHOSPHORUS, SERUM 4.6 MG/DL (2.5-4.5); POTASSIUM, SERUM 4.3 MMOL/L (3.5-5.3); RBC DISTRIBUTION WIDTH 29.3 % (12.0-16.0); RED CELL COUNT 2.91 10/6/uL (4.0-5.6); SGOT(AST) 86 U/L (5-40); TOTAL BILIRUBIN 11.4 MG/DL (0-1.2); WHITE BLOOD CELLS 19.7 10/3/uL (4.5-10.5)
[2016-10-05 07:45] LABS: MANUAL DIFF NO %; PLATELET COUNT 110 10/3/uL (150-400)
[2016-10-05 07:56] LABS: PLATELET ESTIMATE SLT DEC (ADEQUATE)
[2016-10-05 07:57] LABS: POIKILOCYTOSIS 1+ (5-10/OIF) (0-5/OIF); POLYCHROMASIA 1+ (2-5/OIF) (0-1/OIF); SCHISTOCYTES OCC (0-2/OIF)
[2016-10-05 07:58] LABS: HYPOCHROMIA 1+ (3-10/OIF) (0-2/OIF)
[2016-10-05 07:59] LABS: ACANTHOCYTES OCC (0-2/OIF)
== END 2016-10-06 17:19 | disposition expired | DRG 871 ==
LOC: ER 22:47 → CDU1 23:58 → 4EA 10-05 17:24
PROVIDERS: Emergency Medicine; Internal Medicine
PROC: 02HV33Z Insertion of Infusion Device into Superior Vena Cava, Percutaneous Approach (ICD-10-PCS; principal; 2016-10-05)
PROC: 4A02X4A Measurement of Cardiac Electrical Activity, Guidance, External Approach (ICD-10-PCS; 2016-10-05)
DX: A41.9 Sepsis, unspecified organism (principal); R65.21 Severe sepsis with septic shock; G93.41 Metabolic encephalopathy; N17.9 Acute kidney failure, unspecified; N39.0 Urinary tract infection, site not specified; K75.81 Nonalcoholic steatohepatitis (NASH); Z66 Do not resuscitate; K21.9 Gastro-esophageal reflux disease without esophagitis; D64.9 Anemia, unspecified; I12.9 Hypertensive chronic kidney disease with stage 1 through stage 4 chronic kidney disease, or unspecified chronic kidney disease; N18.3 Chronic kidney disease, stage 3 (moderate)
CPT/HCPCS: 71010; 74000; 80053; 81001; 82140; 83735; 84100; 84484; 85025; 85610; 85730; 87086; 93005; 96374; 99285; A9270-GY; J0692; J2405; J2543; J3486; P9047